=== PATIENT | male | born 1935 | race Caucasian/White ===

== ENCOUNTER 2017-12-04 08:48 | Emergency (ER) | payer MEDICARE, BC ==
--- NOTE | 2017-12-04 09:32 | UC ---
Respiratory Complaint HPI - HPI Summary HPI Summary: cough, chest and nasal congestion for over 1 month no fevers, eating, sleeping drinking urinating ok - History of Current Complaint Chief Complaint: UCRespiratory Stated Complaint: HEAD CONGESTION Time Seen by Provider: 12/04/17 09:21 Hx Obtained From: Patient Onset/Duration: Gradual Onset, Lasting Weeks - 4, Still Present Timing: Constant Severity Initially: Moderate Severity Currently: Moderate Character: Cough: Nonproductive Aggravating Factors: Nothing Alleviating Factors: OTC Meds Associated Signs And Symptoms: Positive: URI, Nasal Congestion - Allergies/Home Medications Allergies/Adverse Reactions: Allergies Allergy/AdvReac Type Severity Reaction Status Date / Time No Known Allergies Allergy Verified 12/04/17 09:31 PMH/Surg Hx/FS Hx/Imm Hx Previously Healthy: No Endocrine History: Dyslipidemia Cardiovascular History: Hypertension, Atrial Fibrillation Other History Of: Anticoagulant Therapy - Xarelto. Negative For: HIV, Hepatitis B, Hepatitis C - Surgical History Surgical History: Yes Surgery Procedure, Year, and Place: Quadruple Bypass, 2012, [place], [place]; Left Cataract, [address], [address]; Herniorrhapy, 2002, [place]; Right Cataracrt, [address], [address], Herniorrhaphy, 1992, [place] - Family History Known Family History: Positive: None - Social History Occupation: Retired Lives: With Family Alcohol Use: Weekly Substance Use Type: None Smoking Status (MU): Never Smoked Tobacco - Immunization History Most Recent Influenza Vaccination: August 2015 Review of Systems Constitutional: Negative Skin: Negative Eyes: Negative ENT: Nasal Discharge, Sinus Congestion Respiratory: Cough Cardiovascular: Negative Gastrointestinal: Negative Genitourinary: Negative Motor: Negative Neurovascular: Negative Musculoskeletal: Negative Neurological: Negative Psychological: Negative Is Patient Immunocompromised?: No All Other Systems Reviewed And Are Negative: Yes Physical Exam Triage Information Reviewed: Yes Appearance: Well-Appearing, No Pain Distress, Well-Nourished Vital Signs Reviewed: Yes Eye Exam: Normal Eyes: Positive: Conjunctiva Clear, Other: - clear drainage ENT Exam: Normal ENT: Positive: Normal ENT inspection, Hearing grossly normal, Pharynx normal, Nasal congestion, Nasal drainage, Uvula midline. Negative: Tonsillar swelling, Tonsillar exudate, Trismus, Muffled voice, Hoarse voice, Dental tenderness, Sinus tenderness Dental Exam: Normal Neck exam: Normal Neck: Positive: Supple, Nontender, No Lymphadenopathy Respiratory Exam: Normal Respiratory: Positive: Chest non-tender, No respiratory distress, No accessory muscle use, Wheezing Cardiovascular Exam: Normal Cardiovascular: Positive: RRR, No Murmur, Pulses Normal, Brisk Capillary Refill Musculoskeletal Exam: Normal Musculoskeletal: Positive: Strength Intact, ROM Intact, No Edema Neurological Exam: Normal Neurological: Positive: Alert, Muscle Tone Normal Psychological Exam: Normal Skin Exam: Normal Respiratory Course/Dx - Course Course Of Treatment: Zithroma, albuterol, increase fluids, otc meds for symptom relief follow with pcp - Differential Dx/Diagnosis Provider Diagnoses: Sinusitis Discharge - Discharge Plan Condition: Stable Disposition: HOME Prescriptions: Albuterol HFA INHALER* [Ventolin HFA Inhaler*] 2 puff INH Q4H PRN #1 mdi PRN Reason: cough Azithromycin TAB* [Zithromax TAB (Z-CURT) 250 mg #6 tabs] 2 tab PO .TODAY, THEN 1 DAILY #1 curt Patient Education Materials: Acute Bronchitis (ED), Rhinosinusitis (ED) Referrals: Daniel Mac DO [Primary Care Provider] - If Needed
[2017-12-04 09:35] VITALS: BP 149/61
== END 2017-12-04 09:40 | disposition home or self-care (01) ==
LOC: UCCORT 08:48
DX: J32.9 Chronic sinusitis, unspecified (principal); Z72.89 Other problems related to lifestyle
CPT/HCPCS: 99212; G0463

== ENCOUNTER 2017-12-07 07:21 | Emergency (ER) | payer MEDICARE, BC ==
[2017-12-07 07:50] VITALS: BP 155/72
--- NOTE | 2017-12-07 08:02 | ED ---
Respiratory - HPI Summary HPI Summary: Cough for about one month despite z pack. he is also useing an inhaler but is not sure how to use it. No chest pain, cough is dry and no fever. - History of Current Complaint Chief Complaint: UCRespiratory Stated Complaint: SINUS CHEST CONGESTION Time Seen by Provider: 12/07/17 07:36 Hx Obtained From: Patient Onset/Duration: Gradual Onset, Lasting Weeks Timing: Constant Initial Severity: Moderate Current Severity: Moderate Pain Intensity: 0 Character: Cough (Nonproductive) Sputum Amount: None Aggravating Factor(s): Deep Breaths, Recumbent Position Alleviating Factor(s): MDI (Frequency Of Use), Antibiotics Associated Signs and Symptoms: URI, Nasal Congestion - Allergy/Home Medications Allergies/Adverse Reactions: Allergies Allergy/AdvReac Type Severity Reaction Status Date / Time No Known Allergies Allergy Verified 12/07/17 07:40 PMH/Surg Hx/FS Hx/Imm Hx Previously Healthy: No - CAD. No lung disease. Endocrine/Hematology History: Reports: Hx Anticoagulant Therapy - Xarelto. Denies: Hx Diabetes, Hx Thyroid Disease Cardiovascular History: Reports: Hx Congestive Heart Failure, Hx Hypertension, Hx Myocardial Infarction Denies: Hx Deep Vein Thrombosis, Hx Pacemaker/ICD Respiratory History: Denies: Hx Asthma, Hx Chronic Obstructive Pulmonary Disease (COPD), Hx Lung Cancer, Hx Pneumonia, Hx Pulmonary Embolism GI History: Denies: Hx Gall Bladder Disease, Hx Gastrointestinal Bleed, Hx Ulcer, Hx Urosepsis History: Denies: Hx Kidney Stones, Hx Renal Disease Neurological History: Denies: Hx Dementia, Hx Migraine, Hx Seizures, Hx Transient Ischemic Attacks (TIA) Psychiatric History: Denies: Hx Anxiety, Hx Depression, Hx Schizophrenia, Hx Bipolar Disorder - Surgical History Surgery Procedure, Year, and Place: Quadruple Bypass, 2012, [place], [place]; Left Cataract, 2004, [place]; Herniorrhapy, 2002, [place]; Right Cataracrt, 2000, [place], Herniorrhaphy, 1992, [place] Infectious Disease History: No Infectious Disease History: Reports: Hx Shingles Denies: Traveled Outside the in Last 30 Days - Family History Known Family History: Positive: None - Social History Alcohol Use: Weekly Alcohol Amount: 3 Substance Use Type: Reports: None Smoking Status (MU): Never Smoked Tobacco Review of Systems Negative: Fever Positive: Other - congestion. Positive: Cough. Negative: Shortness Of Breath All Other Systems Reviewed And Are Negative: Yes Physical Exam Triage Information Reviewed: Yes Vital Signs On Initial Exam: Initial Vitals Temp Pulse Resp BP Pulse Ox 97.1 F 82 24 155/72 98 12/07/17 07:46 12/07/17 07:46 12/07/17 07:46 12/07/17 07:46 12/07/17 07:46 Vital Signs Reviewed: Yes Appearance: Positive: Well-Appearing, No Pain Distress, Well-Nourished Skin: Positive: Warm, Dry Head/Face: Positive: Normal Head/Face Inspection Eyes: Positive: Normal, EOMI, GIULIANO ENT: Positive: Pharynx normal, Nasal congestion, TMs normal, Uvula midline. Negative: Pharyngeal erythema, Tonsillar swelling, Tonsillar exudate, Trismus, Muffled voice, Sinus tenderness Neck: Positive: Supple, Nontender, No Lymphadenopathy Respiratory/Lung Sounds: Positive: Clear to Auscultation, Breath Sounds Present. Negative: Decreased Breath Sounds, Rales, Rhonchi, Wheezes, Fatigue Cardiovascular: Positive: RRR. Negative: Murmur, Leg Edema Left, Leg Edema Right Abdomen Description: Negative: Distended, Guarding Musculoskeletal: Positive: Normal. Negative: Edema Left, Edema Right Neurological: Positive: Normal, Sensory/Motor Intact, Alert, Oriented to Person Place, Time, CN Intact II-III. Negative: Disoriented Psychiatric: Positive: Affect/Mood Appropriate AVPU Assessment: Alert Diagnostics - Vital Signs Vital Signs Temp Pulse Resp BP Pulse Ox 12/07/17 07:46 97.1 F 82 24 155/72 98 - Laboratory Lab Statement: Any lab studies that have been ordered have been reviewed, and results considered in the medical decision making process. Disposition - Course Course Of Treatment: Prolonged cough. X ray to rule out chf/pneumonia/ pneunothorax. Clinically he is well. More likely uri, post nasal drip, bronchitis. Not on ACEI - Differential Dx - Cardiopulmonary Differential Diagnoses - Cardiopulmonary: Acute Coronary, Acute Dyspnea, Airway Obstruction, Aspiration, Asthma, Atrial Fibrillation, Atrial Flutter, AV Block, Bronchitis, CAD, Cardiomyopathy, CHF, Hyperventilation, Hypokalemia, Influenza, Lower Resp Infection, Medication Induced, Myocarditis, Pericarditis, Pneumothorax, Pulmonary Edema, Pulmonary Embolism - Diagnoses Provider Diagnoses: Bronchitis Discharge - Discharge Plan Condition: Good Disposition: HOME Prescriptions: Inhaler, Assist Devices [Aerochamber Mini] 1 each MC TID PRN #1 spacer PRN Reason: Cough Patient Education Materials: Upper Respiratory Infection (ED) Referrals: Daniel Mac DO [Primary Care Provider] - Additional Instructions: Try Netti pot or nasal irrigation.
--- NOTE | 2017-12-07 08:13 | RAD ---
INDICATION: Cough for one month COMPARISON: None TECHNIQUE: PA and lateral dual-energy views were obtained. FINDINGS: Bones/Soft Tissues: There are no acute bony findings. There is prior cardiothoracic surgery Cardiomediastinal: The cardiomediastinal silhouette is normal. Lungs: There are no focal infiltrates. Interstitium is mildly prominent which may reflect mild passive congestive findings. Pleura: There are no pleural effusions. Other: None IMPRESSION: POSSIBLE MILD PASSIVE CONGESTIVE FINDINGS. NO EVIDENCE OF ACUTE PNEUMONITIS.
== END 2017-12-07 08:25 | disposition home or self-care (01) ==
LOC: UCCORT 07:21
DX: J40 Bronchitis, not specified as acute or chronic (principal); I25.10 Atherosclerotic heart disease of native coronary artery without angina pectoris; Z79.01 Long term (current) use of anticoagulants; I25.2 Old myocardial infarction; I11.0 Hypertensive heart disease with heart failure; I50.9 Heart failure, unspecified; Z95.1 Presence of aortocoronary bypass graft; Z98.42 Cataract extraction status, left eye; Z98.41 Cataract extraction status, right eye
CPT/HCPCS: 71046; 99212; G0463

== ENCOUNTER 2018-02-17 08:05 | Emergency (ER) | payer MEDICARE, BC ==
[2018-02-17 08:27] VITALS: BP 154/69
--- NOTE | 2018-02-17 08:29 | UC ---
Respiratory Complaint HPI - HPI Summary HPI Summary: Pt presents with 2 weeks progressive SOB, KISER, wheeze and cough with yellow sputum. Pt reports mild head congestion. no fever, chills, rash. no cp, sob. Pt denies n/v/d. Pt lives alone. Denies h/o lung dx. Pt was treated for uri in Dec - neg cxr, given z pack and MDI - states sx improved. Pt has not called his PCP Pt's medications reviewed this visit - History of Current Complaint Chief Complaint: UCGeneralIllness Stated Complaint: RESPIRATORY COMPLAINT Time Seen by Provider: 02/17/18 08:28 Hx Obtained From: Patient, Medical Records Onset/Duration: Gradual Onset Timing: Constant Severity Initially: Mild Severity Currently: Mild Pain Intensity: 0 Pain Scale Used: 0-10 Numeric Character: Cough: Nonproductive Alleviating Factors: Bronchodilator Associated Signs And Symptoms: Positive: Dyspnea, Wheezing, URI, Nasal Congestion - Allergies/Home Medications Allergies/Adverse Reactions: Allergies Allergy/AdvReac Type Severity Reaction Status Date / Time No Known Allergies Allergy Verified 02/17/18 08:18 Home Medications: Home Medications guaiFENesin [Mucinex] 1 tab PO TID PRN 02/17/18 [History Confirmed 02/17/18] PMH/Surg Hx/FS Hx/Imm Hx Previously Healthy: Yes Endocrine History: Dyslipidemia Cardiovascular History: Cardiac Disease, Hypertension Other History Of: Anticoagulant Therapy - Xarelto. Negative For: HIV, Hepatitis B, Hepatitis C - Surgical History Surgical History: Yes Surgery Procedure, Year, and Place: Quadruple Bypass, 2012, [place], [place]; Left Cataract, 2004, [place]; Herniorrhapy, 2002, [place]; Right Cataracrt, 2000, [place], Herniorrhaphy, 1992, [place] - Family History Known Family History: Positive: None - Social History Occupation: Retired Lives: Alone Alcohol Use: Weekly Alcohol Amount: 3 Substance Use Type: None Smoking Status (MU): Never Smoked Tobacco - Immunization History Most Recent Influenza Vaccination: August 2015 Review of Systems Constitutional: Negative Skin: Negative Eyes: Negative Respiratory: Shortness Of Breath - with activity, Cough All Other Systems Reviewed And Are Negative: Yes Physical Exam Triage Information Reviewed: Yes Appearance: Well-Appearing, No Pain Distress, Well-Nourished Vital Signs: Initial Vital Signs Temp 97.8 F 02/17/18 08:21 Pulse 69 02/17/18 08:21 Resp 20 02/17/18 08:21 BP 154/69 02/17/18 08:21 Pulse Ox 94 02/17/18 08:21 Vital Signs Reviewed: Yes Eye Exam: Normal Eyes: Positive: Conjunctiva Clear ENT: Positive: Hearing grossly normal, Nasal congestion, Uvula midline. Negative: TMs normal - obscurred by cerumen b/l Dental Exam: Normal Neck exam: Normal Neck: Positive: Supple, Nontender, No Lymphadenopathy Respiratory Exam: Normal Respiratory: Positive: No respiratory distress, No accessory muscle use, Wheezing - scattered wheeze +BS throughout no rales, rhonci Cardiovascular Exam: Normal Cardiovascular: Positive: RRR, No Murmur Abdominal Exam: Normal Abdomen Description: Positive: Nontender, No Organomegaly, Soft Musculoskeletal Exam: Normal Musculoskeletal: Positive: Strength Intact Neurological Exam: Normal Neurological: Positive: Alert Psychological Exam: Normal Psychological: Positive: Normal Response To Family Skin Exam: Normal UC Diagnostic Evaluation - Laboratory O2 Sat by Pulse Oximetry: 94 Re-Evaluation - Re-Evaluation First Eval Change: Unchanged - Pt states feels better following neb Pt with slight improvement BS Pt ambulated - sats 88-92% with mild increased RR - pt with quick recovery CXR revealed mild pulm vas congestion pt without dx of CHF spoke with Chon Cortez NP at [facility] - will see pt upon arrival pt comfortable and in agreement with plan - pt will go by POV directly toED Respiratory Course/Dx - Course Course Of Treatment: Pt presents with progressive sob, cough and wheeze. pt terated for URI in Feb with resolution. No h/o lung dx or CHF. Pt's BP mildly elevated- pt has HTN. Will check CXR and neb - reassess. if PNA - will send to ED. if KISER after neb will send to ED. Pt comfortable and in agreement with plan. close reassessment - Differential Dx/Diagnosis Provider Diagnoses: KISER Discharge - Sign-Out/Discharge Documenting (check all that apply): Discharge - Discharge Plan Condition: Stable Disposition: HOME Discharge Disposition Comment: to [facility] ED by POV Referrals: Daniel Mac DO [Primary Care Provider] - Additional Instructions: as discussed, the doctor that evaluated you today is concerned your shortness of breath is related to fluid in your lungs As discussed, you are being referred directly to the emergency department at [facility] - they are expecting you Go directly there when you leave this facility - Billing Disposition and Condition Condition: STABLE Disposition: HOME
[2018-02-17] MEDS ORDERED: Albuterol/Ipratropium NEB.SOL* Albuterol 2.5 MG/Ipratropium 0.5 MG 3 ML INH ONE (08:35)
--- NOTE | 2018-02-17 09:03 | RAD ---
HISTORY: Cough, wheezing COMPARISONS: December 17, 2017 VIEWS: 4: Frontal dual-energy and lateral views of the chest. FINDINGS: CARDIOMEDIASTINAL SILHOUETTE: The cardiomediastinal silhouette is stable. A prosthetic heart valve is noted.. EM: The em are normal. PLEURA: The costophrenic angles are sharp. No pleural abnormalities are noted. LUNG PARENCHYMA: There is hyperinflation. Again noted is prominence of the pulmonary vasculature. ABDOMEN: The upper abdomen is clear. There is no subphrenic gas. BONES AND SOFT TISSUES: The patient is status post median sternotomy. OTHER: A left-sided pacemaker is noted. IMPRESSION: 1. HYPERINFLATION. 2. AGAIN NOTED IS PULMONARY VASCULAR CONGESTION.
== END 2018-02-17 09:37 | disposition home or self-care (01) ==
LOC: UCCORT 08:05
DX: R06.00 Dyspnea, unspecified (principal)
CPT/HCPCS: 71046; 99212; A9270-GY; G0463